=== PATIENT | male | born 1995 | race African-American/Black ===

== ENCOUNTER 2017-08-21 15:02 | Emergency (ER) | payer OTHER ==
[2017-08-21 15:22] VITALS: BP 131/83
--- NOTE | 2017-08-21 15:33 | UC ---
Eye Complaint HPI - HPI Summary HPI Summary: 22 yo male presents with left upper eyelid swelling and tenderness for the past week. He tells me that he had a stye in his right eye a few weeks ago that resolved in a day or two - but now has one in his LEFT eye that has been persistent for a week. Has been using OTC ointments with no relief. Has been doing warm compresses with no relief. Denies fever, chills, or vision changes. - History of Current Complaint Chief Complaint: UCEye Stated Complaint: L EYE COMPLAINT Time Seen by Provider: 08/21/17 15:26 Hx Obtained From: Patient Onset/Duration: Gradual Onset Timing: Constant Severity Initially: Moderate Severity Currently: Moderate Pain Intensity: 7 Pain Scale Used: 0-10 Numeric - Allergies/Home Medications Allergies/Adverse Reactions: Allergies Allergy/AdvReac Type Severity Reaction Status Date / Time No Known Allergies Allergy Verified 08/21/17 15:22 PMH/Surg Hx/FS Hx/Imm Hx - Additional Past Medical History Additional PMH: None Previously Healthy: Yes - Surgical History Surgical History: None - Family History Known Family History: Positive: None - Social History Occupation: Employed Full-time Lives: With Family Alcohol Use: Occasionally Substance Use Type: None Smoking Status (MU): Light Every Day Tobacco Smoker Amount Used/How Often: 1 pk/wk Review of Systems Constitutional: Negative Skin: Negative Eyes: Other - Upper eyelid nodule ENT: Negative Respiratory: Negative Cardiovascular: Negative Neurological: Negative Psychological: Negative All Other Systems Reviewed And Are Negative: Yes Physical Exam - Summary Physical Exam Summary: GENERAL: NAD. WDWN. No pain distress. SKIN: No rashes, sores, lesions, or open wounds. HEENT: Head: AT/NC Eyes: EOM intact. PERRLA. Conjunctiva clear without inflammation or discharge. Mild scleral injection. Upper medial eyelid with 3mm nodule vs abscess. No purulent matter able to be expressed. TTP. Nose: Nasal mucosa pink and moist. NTTP maxillary and frontal sinus. NECK: Supple. Nontender. No lymphadenopathy. CHEST: No accessory muscle use. Breathing comfortably and in no distress. CV: RRR. Without m/r/g. Pulses intact. Brisk cap refill. NEURO: Alert. CN II-XII grossly intact. PSYCH: Age appropriate behavior. Triage Information Reviewed: Yes Vital Signs: Initial Vital Signs Temp 98.2 F 06/19/18 15:17 Pulse 62 08/21/17 15:17 Resp 16 08/21/17 15:17 BP 131/83 08/21/17 15:17 Pulse Ox 99 08/21/17 15:17 Eye Complaint Course/Dx - Course Course Of Treatment: Suspect stye of left eye. Given mild scleral injection will cover for infection with polytrim and advise to continue using warm compresses. Refer to optho if stye persists after the weekend. - Differential Dx/Diagnosis Provider Diagnoses: Stye left eye Discharge - Sign-Out/Discharge Documenting (check all that apply): Discharge/Admit/Transfer - Discharge Plan Condition: Stable Disposition: HOME Prescriptions: Polymyx/Trimethoprim OPTH* [Polytrim OPHTH*] 1 drop LEFT EYE QID #1 btl Patient Education Materials: Stye (ED) Forms: *Work Release Referrals: No Primary Care Phys,NOPCP [Primary Care Provider] - Nicolás Frances MD [Medical Doctor] - If Needed Additional Instructions: If you develop a fever, shortness of breath, chest pain, new or worsening symptoms - please call your PCP or go to the ED. 1) If your stye does not resolve by next week - please call Dr. Frances at the number below to schedule an appointment as this may need to be drained - Billing Disposition and Condition Condition: STABLE Disposition: Home
== END 2017-08-21 15:40 | disposition home or self-care (01) ==
LOC: UCEAST 15:02
DX: H00.024 Hordeolum internum left upper eyelid (principal); F17.210 Nicotine dependence, cigarettes, uncomplicated
CPT/HCPCS: 99202; G0463

== ENCOUNTER 2017-12-08 12:55 | Emergency (ER) | payer MEDICAID, OTHER ==
[2017-12-08] MEDS ORDERED: Ketorolac INJ* 60 MG/2 ML VIAL IM ONE (13:15)
[2017-12-08 13:41] VITALS: BP 125/70
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
== END 2017-12-08 13:41 | disposition home or self-care (01) ==
LOC: ED 12:55
DX: S21.112A Laceration without foreign body of left front wall of thorax without penetration into thoracic cavity, initial encounter (principal); W45.8XXA Other foreign body or object entering through skin, initial encounter; Y92.9 Unspecified place or not applicable; F17.210 Nicotine dependence, cigarettes, uncomplicated
CPT/HCPCS: 12001; 96372; 99282; J1885

== ENCOUNTER 2017-12-18 18:50 | Emergency (ER) | payer OTHER ==
[2017-12-18 19:32] VITALS: BP 126/57
[2017-12-18] MEDS ORDERED: Bacitracin OINTMENT* 0.5% 0.5 oz TUBE TOPICAL ONE (19:41)
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
== END 2017-12-18 19:50 | disposition home or self-care (01) ==
LOC: UCEAST 18:50
DX: S21.132D Puncture wound without foreign body of left front wall of thorax without penetration into thoracic cavity, subsequent encounter (principal); W45.8XXD Other foreign body or object entering through skin, subsequent encounter; F17.200 Nicotine dependence, unspecified, uncomplicated
CPT/HCPCS: 99212; A9270-GY; G0463

== ENCOUNTER 2019-05-11 01:38 | Inpatient (IN) | payer OTHER ==
[2019-05-11] MEDS ORDERED: LORazepam INJ* 2 MG/ML 1 ML VIAL ONE ×2 (01:46→18:50)
[2019-05-11] MEDS ORDERED: Haloperidol INJ IV/IM* 5 MG/ML AMP IM ONE (01:46)
[2019-05-11] MEDS ORDERED: LORazepam INJ* 2 MG/ML 1 ML VIAL IM ONE (01:46)
[2019-05-11] MEDS ORDERED: diPHENhydraMINE IV* 50 MG/ML 1 ml VIAL (BENADRYL) IM ONE (01:46)
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
[2019-05-11 03:13] LABS: ABS Basophils 0.1 10^3/ul (0-0.2); ABS Monocytes 0.7 10^3/ul (0-0.8); ABS Neutrophils 8.6 10^3/ul (1.5-7.7); Eosinophil % 0.2 %; Hematocrit 49 % (42-52); Hemoglobin 16.5 g/dL (14.0-18.0); Mean Corpuscular HGB Conc 34 g/dL (31-36); Mean Corpuscular Hemoglobin 29 pg (27-31); Mean Corpuscular Volume 87 fL (80-94); Mean Platelet Volume 8.8 fL (7.4-10.4); Nucleated Red Blood Cells % 0.1; Platelet Count 185 10^3/uL (150-450); Red Blood Count 5.62 10^6 /uL (4.18-5.48); Red Cell Distribution Width 15 % (10-15); White Blood Count 11.4 10^3/uL (3.5-10.8)
[2019-05-11 03:28] LABS: ALT 21 U/L (7-52); AST 30 U/L (13-39); Albumin 5.1 g/dL (3.2-5.2); Albumin/Globulin Ratio 1.5 (1-3); Alkaline Phosphatase 54 U/L (34-104); Anion Gap 11 mmol/L (2-11); BUN/Creatinine Ratio 8.7 (8-20); Blood Urea Nitrogen 8 mg/dL (6-24); CO2 Carbon Dioxide 24 mmol/L (22-32); Calcium 9.4 mg/dL (8.6-10.3); Chloride 102 mmol/L (101-111); EGFR African American 122.3 (>60); EGFR Non-African American 101.1 (>60); Globulin 3.5 g/dL (2-4); Glucose 96 mg/dL (70-100); Potassium 3.7 mmol/L (3.5-5.0); Sodium 137 mmol/L (135-145); Total Protein 8.6 g/dL (6.4-8.9)
[2019-05-11 03:46] LABS: Acetaminophen < 15 mcg/mL; Alcohol 344 mg/dL (<10); Salicylate < 2.50 mg/dL (<30)
[2019-05-11 04:02] LABS: TSH (Thyroid Stimulating Horm) 2.87 mcIU/mL (0.34-5.60)
[2019-05-11] MEDS ORDERED: NS 0.9% 1000 ML** 1,000 ML IV ONE (06:38)
--- NOTE | 2019-05-11 07:11 | ED ---
Progress - Progress Note Progress Note: Patient is a sign out from Dr. Calderon Hernandez to Dr. Sergo Dickerson at change of shifts at 0700 on 05/11/2019, pending sobriety and MHE. Re-Evaluation - Re-Evaluation First Eval Re-Evaluation Time: 11:58 Comment: Patient is medically clear for MHE. Second Eval Re-Evaluation Time: 16:12 Comment: Per pipe fitter apprentice, Dr. Keenan, psychiatrist, accepted the patient for voluntary admission to [facility] psych with dx of substance abuse, depression, and alcohol intoxication. Course/Dx - Course Course Of Treatment: This patient was signed out by Dr. Charles at shift change. He reports that the patient came with alcohol intoxication. Patient is medically clear for mental health evaluation. Dr. Keenan assessed the patient and recommends admission to his services. - Diagnoses Provider Diagnoses: Substance abuse, Depression, Alcohol intoxication Discharge ED - Sign-Out/Discharge Documenting (check all that apply): Patient Departure - Discharge, Receiving Sign-Out Receiving patient FROM: Calderon Hernandez - Discharge Plan Condition: Fair Disposition: PSYCHIATRIC FACILITY[place] - Billing Disposition and Condition Condition: FAIR Disposition: Psychiatric Facility [facility] - Attestation Statements Document Initiated by Scribe: Yes Documenting Scribe: [place] Provider For Whom Scribe is Documenting (Include Credential): Sergo Dickerson MD Scribe Attestation: [place], scribed for Sergo Dickerson MD on 05/12/19 at 0713. Scribe Documentation Reviewed: Yes Provider Attestation: The documentation as recorded by the [place] accurately reflects the service I personally performed and the decisions made by me, Sergo Dickerson MD Status of Scribe Document: Viewed
[2019-05-11 15:53] LABS: Urine Appearance Clear; Urine Bilirubin Negative (Negative); Urine Blood Negative (Negative); Urine Color Yellow; Urine Glucose Negative (Negative); Urine Ketones Negative (Negative); Urine Nitrite Negative (Negative); Urine Protein Negative (Negative); Urine Specific Gravity 1.015 (1.010-1.030); Urine Urobilinogen Negative (Negative)
[2019-05-11 16:07] LABS: Urine Benzodiazepine Screen None Detected (None Detect); Urine Opiates Screen None Detected (None Detect)
[2019-05-11] MEDS ORDERED: diPHENhydraMINE IV* 50 MG/ML 1 ml VIAL (BENADRYL) ONE (18:50)
[2019-05-11] MEDS ORDERED: Haloperidol Decanoate* 50 MG/ML AMP ONE (18:50)
[2019-05-11] MEDS ORDERED: Nicotine* 4MG (FRUIT FLAVOR) GUM PO PRN (18:51)
[2019-05-11] MEDS ORDERED: Al Hydrox/Mg Hydrox/Simet LIQ* 30 ML UDC PO PRN (18:51)
[2019-05-11] MEDS ORDERED: Acetaminophen TAB* 325 MG PO PRN (18:51)
[2019-05-11 19:57] VITALS: BP 129/60
[2019-05-11] MEDS ORDERED: Nicotine Patch Removal NOTE PATCH OFF SCH (21:00)
[2019-05-12] MEDS ORDERED: Nicotine PATCH 21 MG/24 HR* PATCH TRANSDERM SCH (09:00)
[2019-05-12] MEDS ORDERED: Vitamin THERAPEUTIC TAB PO SCH (09:00)
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
== END 2019-05-12 16:30 | disposition home or self-care (01) | DRG 775 ==
LOC: ED 01:38 → BSU 18:27
PROVIDERS: ADMIT Psychiatry & Neurology Psychiatry; ATTEND Psychiatry & Neurology Psychiatry
DX: F10.14 Alcohol abuse with alcohol-induced mood disorder (principal); R45.851 Suicidal ideations; F17.210 Nicotine dependence, cigarettes, uncomplicated; S01.81XA Laceration without foreign body of other part of head, initial encounter; Y90.8 Blood alcohol level of 240 mg/100 ml or more; F10.129 Alcohol abuse with intoxication, unspecified; Z56.0 Unemployment, unspecified; X83.8XXA Intentional self-harm by other specified means, initial encounter; Y92.9 Unspecified place or not applicable
CPT/HCPCS: 36415; 70450; 80053; 80307; 80320; 80329; 81003; 84443; 85025; 99284; A9270-GY; G0480; J1200; J1631; J2060